=== PATIENT | male | born 1965 | race Caucasian/White ===

== ENCOUNTER 2017-08-15 07:30 | Emergency (ER) | payer MEDICARE ==
[2017-08-15] MEDS: OXYCODONE/ACETAMINOPHEN (5/325) TAB PO (09:26)
[2017-08-15] MEDS: LORAZEPAM 2 MG INJ IM (09:26)
[2017-08-15] MEDS: KETOROLAC 30 MG INJ IM (09:26)
== END 2017-08-15 13:35 | disposition home or self-care (01) ==
LOC: E/R 07:30
DX: I82.511 Chronic embolism and thrombosis of right femoral vein (principal); L97.529 Non-pressure chronic ulcer of other part of left foot with unspecified severity; I87.2 Venous insufficiency (chronic) (peripheral); G89.4 Chronic pain syndrome; I10 Essential (primary) hypertension; Z79.84 Long term (current) use of oral hypoglycemic drugs
CPT/HCPCS: 96372; 99284-25

== ENCOUNTER 2018-02-08 11:38 | Emergency (ER) | payer MEDICARE, OTHER | END 2018-02-08 14:10 | disposition home or self-care (01) | LOC: E/R 11:38 | DX: F10.10 Alcohol abuse, uncomplicated (principal); I10 Essential (primary) hypertension; Z72.89 Other problems related to lifestyle | CPT/HCPCS: 99282 ==

== ENCOUNTER 2018-02-16 02:48 | Emergency (ER) | payer MEDICARE, OTHER | END 2018-02-16 08:15 | disposition home or self-care (01) | LOC: E/R 02:48 | DX: M25.511 Pain in right shoulder (principal); I10 Essential (primary) hypertension; E11.9 Type 2 diabetes mellitus without complications; F17.210 Nicotine dependence, cigarettes, uncomplicated; Z79.84 Long term (current) use of oral hypoglycemic drugs; Z79.82 Long term (current) use of aspirin | CPT/HCPCS: 73030; 73030-RT; 99283-25 ==

== ENCOUNTER 2018-06-02 07:56 | Emergency (ER) | payer MEDICARE, OTHER ==
[2018-06-02 08:46] LABS: ADD MAN DIFF? NO
[2018-06-02 08:50] LABS: BASOPHIL # 0.1 10^3/ul (0.0-0.1); BASOPHILS % 0.8 % (0.0-2.0); EOSINOPHILS % 0.2 % (0.0-7.0); HEMATOCRIT 43.4 % (42.0-52.0); HEMOGLOBIN 14.8 g/dl (14.0-18.0); LYMPHOCYTES # 1.9 10^3/ul (0.8-2.9); LYMPHOCYTES % 18.4 % (15.0-51.0); MEAN CORPUSCULAR HEMOGLOBIN 28.7 pg (29.0-33.0); MEAN CORPUSCULAR HGB CONC 34.1 g/dl (32.0-37.0); MEAN CORPUSCULAR VOLUME 84.1 fl (82.0-101.0); MEAN PLATELET VOLUME 9.9 fl (7.4-10.4); MONOCYTE # 0.7 10^3/ul (0.3-0.9); MONOCYTES % 6.9 % (0.0-11.0); NEUTROPHIL # 7.6 10^3/ul (1.6-7.5); PLATELET COUNT 276 10^3/UL (140-415); RED BLOOD COUNT 5.16 10^6/ul (4.70-6.10); RED CELL DISTRIBUTION WIDTH 13.2 % (11.5-14.5)
[2018-06-02 08:50] LABS: WHITE BLOOD COUNT 10.4 10^3/ul (4.8-10.8)
[2018-06-02 09:11] LABS: ALANINE AMINOTRANSFERASE 53 IU/L (13-69); ALBUMIN 4.7 g/dl (3.3-4.9); ALKALINE PHOSPHATASE 193 IU/L (42-121); ANION GAP 15 (5-13); ASPARTATE AMINO TRANSFERASE 43 IU/L (15-46); BLOOD UREA NITROGEN 12 mg/dl (7-20); CALCIUM 10.1 mg/dl (8.4-10.2); CARBON DIOXIDE 28 mmol/L (21-31); CHLORIDE 101 mmol/L (97-110); CREATININE 0.56 mg/dl (0.61-1.24); Estimated GFR > 60 mL/min (>60); GLUCOSE 355 mg/dl (70-220); LIPASE 78 U/L (23-300); POTASSIUM 3.8 mmol/L (3.5-5.1); SODIUM 144 mmol/L (135-144); TOTAL PROTEIN 8.3 g/dl (6.1-8.1)
== END 2018-06-02 09:40 | disposition home or self-care (01) ==
LOC: E/R 07:56
DX: F10.10 Alcohol abuse, uncomplicated (principal); E11.9 Type 2 diabetes mellitus without complications; Z79.82 Long term (current) use of aspirin; Z79.84 Long term (current) use of oral hypoglycemic drugs; Z87.891 Personal history of nicotine dependence; Z89.611 Acquired absence of right leg above knee
CPT/HCPCS: 36415; 80053; 80307; 83690; 85025; 99283

== ENCOUNTER 2018-06-17 15:29 | Inpatient (IN) | payer MEDICARE, OTHER ==
[2018-06-17 17:31] LABS: ADD MAN DIFF? NO
[2018-06-17 17:35] LABS: BASOPHIL # 0.1 10^3/ul (0.0-0.1); EOSINOPHILS % 0.4 % (0.0-7.0); HEMATOCRIT 44.6 % (42.0-52.0); HEMOGLOBIN 15.2 g/dl (14.0-18.0); LYMPHOCYTES # 1.8 10^3/ul (0.8-2.9); LYMPHOCYTES % 25.6 % (15.0-51.0); MEAN CORPUSCULAR HEMOGLOBIN 28.8 pg (29.0-33.0); MEAN CORPUSCULAR HGB CONC 34.1 g/dl (32.0-37.0); MEAN CORPUSCULAR VOLUME 84.5 fl (82.0-101.0); MEAN PLATELET VOLUME 9.4 fl (7.4-10.4); MONOCYTE # 0.6 10^3/ul (0.3-0.9); MONOCYTES % 8.1 % (0.0-11.0); NEUTROPHIL # 4.5 10^3/ul (1.6-7.5); NEUTROPHILS % 64.3 % (39.0-77.0); PLATELET COUNT 297 10^3/UL (140-415); RED BLOOD COUNT 5.28 10^6/ul (4.70-6.10); RED CELL DISTRIBUTION WIDTH 13.4 % (11.5-14.5)
[2018-06-17 17:53] LABS: ANION GAP 14 (5-13); BLOOD UREA NITROGEN 8 mg/dl (7-20); CALCIUM 9.3 mg/dl (8.4-10.2); CARBON DIOXIDE 26 mmol/L (21-31); CHLORIDE 103 mmol/L (97-110); CREATININE 0.72 mg/dl (0.61-1.24); Estimated GFR > 60 mL/min (>60); GLUCOSE 122 mg/dl (70-220); POTASSIUM 3.7 mmol/L (3.5-5.1); SODIUM 143 mmol/L (135-144)
[2018-06-17] MEDS: SOD CHLORIDE 0.9% 2,000 ML IV (18:10)
[2018-06-17 18:51] LABS: ADD UMIC NO; UR ASCORBIC ACID NEGATIVE (NEGATIVE); UR BILIRUBIN (Dip) NEGATIVE (NEGATIVE); UR BLOOD (Dip) NEGATIVE (NEGATIVE); UR CLARITY CLEAR (CLEAR); UR COLOR STRAW (YELLOW); UR GLUCOSE (Dip) NEGATIVE (NEGATIVE); UR KETONES (Dip) NEGATIVE (NEGATIVE); UR LEUKOCYTE ESTERASE (Dip) NEGATIVE Leu/ul (NEGATIVE); UR NITRITE (Dip) NEGATIVE (NEGATIVE); UR SPECIFIC GRAVITY (Dip) 1.009 (1.003-1.030); UR TOTAL PROTEIN (Dip) NEGATIVE (NEGATIVE); UR UROBILINOGEN (Dip) NEGATIVE (NEGATIVE)
[2018-06-17] MEDS: OXYCODONE/ACETAMINOPHEN (5/325) TAB PO (19:56)
[2018-06-17] MEDS ORDERED: LORAZEPAM 1 MG TAB PO (20:51)
[2018-06-17] MEDS: LORAZEPAM 2 MG INJ IM (21:01)
[2018-06-17] MEDS: LORAZEPAM 2 MG INJ IV (23:50)
[2018-06-18] MEDS ORDERED: DOCUSATE SODIUM 100 MG CAP PO (02:00)
[2018-06-18] MEDS ORDERED: ACETAMINOPHEN 650MG/20.3ML CUP PO (02:00)
[2018-06-18] MEDS: LORAZEPAM 2 MG INJ IV ×3 (02:53→20:13)
[2018-06-18] MEDS ORDERED: GLUCOSE GEL 15 GRAM TUBE BUCCAL (04:30)
[2018-06-18] MEDS ORDERED: GLUCOSE GEL 15 GRAM TUBE PO ×2 (04:30)
[2018-06-18] MEDS ORDERED: GLUCAGON 1 MG INJ IM (04:30)
[2018-06-18] MEDS ORDERED: DEXTROSE 50% 50 ML SYRINGE IV ×2 (04:30)
[2018-06-18] MEDS: MULTIVITAMINS 10 ML, FOLIC ACID 1 MG in SOD CHLORIDE 0.9% 1,000 ML IVPB ×2 (04:37→09:00)
[2018-06-18 04:42] LABS: ADD MAN DIFF? NO
[2018-06-18 04:44] LABS: BASOPHIL # 0.1 10^3/ul (0.0-0.1); EOSINOPHILS # 0.1 10^3/ul (0.0-0.5); HEMOGLOBIN 14.2 g/dl (14.0-18.0); MEAN CORPUSCULAR HEMOGLOBIN 28.8 pg (29.0-33.0); MEAN CORPUSCULAR HGB CONC 33.8 g/dl (32.0-37.0); MEAN CORPUSCULAR VOLUME 85.2 fl (82.0-101.0); MEAN PLATELET VOLUME 9.6 fl (7.4-10.4); MONOCYTE # 0.7 10^3/ul (0.3-0.9); MONOCYTES % 8.9 % (0.0-11.0); NEUTROPHIL # 5.1 10^3/ul (1.6-7.5); NEUTROPHILS % 63.7 % (39.0-77.0); PLATELET COUNT 312 10^3/UL (140-415); RED BLOOD COUNT 4.93 10^6/ul (4.70-6.10); RED CELL DISTRIBUTION WIDTH 13.7 % (11.5-14.5)
[2018-06-18 04:58] LABS: HEMOGLOBIN A1C 7.1 % (0-5.9)
[2018-06-18] MEDS: INSULIN ASPART [NOVOLOG] 3 ML PEN SC ×5 (05:00→20:19)
[2018-06-18 05:02] LABS: ANION GAP 10 (5-13); BLOOD UREA NITROGEN 11 mg/dl (7-20); CALCIUM 8.7 mg/dl (8.4-10.2); CARBON DIOXIDE 28 mmol/L (21-31); CHLORIDE 101 mmol/L (97-110); CHOLESTEROL 201 mg/dl (100-200); CREATININE 0.78 mg/dl (0.61-1.24); Estimated GFR > 60 mL/min (>60); GLUCOSE 128 mg/dl (70-220); HDL CHOLESTEROL 33 mg/dl (28-71); POTASSIUM 3.6 mmol/L (3.5-5.1); SODIUM 139 mmol/L (135-144)
[2018-06-18 05:03] LABS: PROTIME 13.3 Sec (11.9-14.9)
[2018-06-18 05:04] LABS: PARTIAL THROMBOPLASTIN TIME 28.2 Sec (23.0-35.0)
[2018-06-18 05:12] LABS: ETHANOL < 10.0 mg/dl (0-0)
[2018-06-18 05:13] LABS: LDL CHOLESTEROL,CALCULATED 15 mg/dl; TRIGLYCERIDES 765 mg/dl (0-149)
[2018-06-18 06:41] LABS: AMPHETAMINE/METHAMPHETAMINE NEGATIVE (NEGATIVE); BARBITURATES NEGATIVE (NEGATIVE); BENZODIAZEPINES NEGATIVE (NEGATIVE); CANNABINOIDS POSITIVE (NEGATIVE); COCAINE NEGATIVE (NEGATIVE); OPIATES NEGATIVE (NEGATIVE)
[2018-06-18] MEDS: LABETALOL HCL 20MG INJ IV ×2 (07:16→12:13)
[2018-06-18] MEDS: PANTOPRAZOLE 40 MG INJ IV (07:17)
[2018-06-18] MEDS: SOD CHLORIDE 0.9% 1,000 ML IV ×2 (07:18→17:02)
[2018-06-18] MEDS ORDERED: THIAMINE 200 MG INJ IM (09:00)
[2018-06-18] MEDS: CHLORDIAZEPOXIDE 25 MG CAP PO ×3 (09:18→20:12)
[2018-06-18] MEDS: LOSARTAN 50 MG TAB PO ×2 (09:18→20:12)
[2018-06-18] MEDS: FOLIC ACID 1 MG TAB PO (09:19)
[2018-06-18] MEDS: MULTIVITAMINS THERAPEUTIC TAB PO (09:19)
[2018-06-18] MEDS: METOPROLOL (XL) 50 MG TAB PO (09:19)
[2018-06-18] MEDS: AMLODIPINE 10 MG TAB PO (09:19)
[2018-06-18] MEDS: FENOFIBRATE 145 MG TAB PO (10:48)
[2018-06-18] MEDS: TRIMETHOPRIM/SULFAMETHOX (DS) TAB PO (10:48)
[2018-06-18] MEDS: POTASSIUM CHLORIDE (SR) 20 MEQ TAB PO (10:49)
[2018-06-18 11:27] LABS: MAGNESIUM 1.5 mg/dl (1.7-2.5)
[2018-06-18] MEDS ORDERED: PENDING SANTYL ORDER FOR WOUND CARE XX (11:30)
[2018-06-18] MEDS: MAGNESIUM OXIDE 400 MG TAB PO (14:22)
[2018-06-18] MEDS: ONDANSETRON 4 MG INJ IV (15:47)
[2018-06-18 17:41] LABS: T4 (THYROXINE) 7.9 ug/dl (5.5-11.0)
[2018-06-18 17:55] LABS: TRIIODOTHYRONINE 1.56 ng/ml (0.97-1.69)
[2018-06-18] MEDS: COLLAGENASE 5 GM (UD JAR) TOP (18:06)
[2018-06-18] MEDS: HYDROmorphONE 0.5 MG/0.5 ML SYG IV ×2 (18:21→23:03)
[2018-06-18] MEDS: ATORVASTATIN 40 MG TAB PO (20:12)
[2018-06-18] MEDS: ZOLPIDEM 5 MG TAB PO (23:03)
[2018-06-19] MEDS: SOD CHLORIDE 0.9% 1,000 ML IV (01:07)
[2018-06-19] MEDS: INSULIN ASPART [NOVOLOG] 3 ML PEN SC ×6 (01:17→21:00)
[2018-06-19] MEDS: ACCU-CHEK XX (01:17)
[2018-06-19] MEDS: HYDROmorphONE 0.5 MG/0.5 ML SYG IV ×4 (04:03→20:03)
[2018-06-19] MEDS: PANTOPRAZOLE 40 MG INJ IV (05:18)
[2018-06-19 05:20] LABS: ALBUMIN 3.5 g/dl (3.3-4.9); ANION GAP 13 (5-13); BLOOD UREA NITROGEN 12 mg/dl (7-20); CALCIUM 8.5 mg/dl (8.4-10.2); CARBON DIOXIDE 25 mmol/L (21-31); CHLORIDE 103 mmol/L (97-110); CREATININE 0.82 mg/dl (0.61-1.24); GLUCOSE 122 mg/dl (70-220); MAGNESIUM 1.8 mg/dl (1.7-2.5); PHOSPHORUS 4.5 mg/dl (2.5-4.9); POTASSIUM 3.8 mmol/L (3.5-5.1); SODIUM 141 mmol/L (135-144)
[2018-06-19] MEDS: LORAZEPAM 2 MG INJ IV ×3 (05:23→21:07)
[2018-06-19] MEDS: THIAMINE 100 MG TAB PO (08:32)
[2018-06-19] MEDS: LOSARTAN 50 MG TAB PO ×2 (08:32→21:07)
[2018-06-19] MEDS: FOLIC ACID 1 MG TAB PO (08:32)
[2018-06-19] MEDS: CHLORDIAZEPOXIDE 25 MG CAP PO ×4 (08:32→21:06)
[2018-06-19] MEDS: AMLODIPINE 10 MG TAB PO (08:32)
[2018-06-19] MEDS: FENOFIBRATE 145 MG TAB PO (08:32)
[2018-06-19] MEDS: COLLAGENASE 5 GM (UD JAR) TOP (08:33)
[2018-06-19] MEDS: METOPROLOL (XL) 50 MG TAB PO (08:33)
[2018-06-19] MEDS: MULTIVITAMINS THERAPEUTIC TAB PO (08:33)
[2018-06-19] MEDS: TRIMETHOPRIM/SULFAMETHOX (DS) TAB PO ×2 (08:33→20:57)
[2018-06-19] MEDS: ATORVASTATIN 40 MG TAB PO (21:10)
[2018-06-19] MEDS: ZOLPIDEM 5 MG TAB PO ×2 (22:19→23:07)
[2018-06-20] MEDS: HYDROmorphONE 0.5 MG/0.5 ML SYG IV ×7 (00:24→23:56)
[2018-06-20] MEDS: traZODone 50 MG TAB PO (00:44)
[2018-06-20] MEDS ORDERED: DIPHENHYDRAMINE 50 MG CAP (02:33)
[2018-06-20] MEDS: DIPHENHYDRAMINE 50 MG CAP PO (02:35)
[2018-06-20] MEDS: PANTOPRAZOLE 40 MG INJ IV (05:43)
[2018-06-20] MEDS: INSULIN ASPART [NOVOLOG] 3 ML PEN SC ×4 (07:49→20:06)
[2018-06-20] MEDS: MULTIVITAMINS THERAPEUTIC TAB PO (08:23)
[2018-06-20] MEDS: COLLAGENASE 5 GM (UD JAR) TOP (08:23)
[2018-06-20] MEDS: THIAMINE 100 MG TAB PO (08:23)
[2018-06-20] MEDS: CHLORDIAZEPOXIDE 25 MG CAP PO ×3 (08:23→20:06)
[2018-06-20] MEDS: TRIMETHOPRIM/SULFAMETHOX (DS) TAB PO ×2 (08:23→20:06)
[2018-06-20] MEDS: FOLIC ACID 1 MG TAB PO (08:23)
[2018-06-20] MEDS: METOPROLOL (XL) 50 MG TAB PO (08:24)
[2018-06-20] MEDS: LOSARTAN 50 MG TAB PO ×2 (08:25→20:08)
[2018-06-20] MEDS: LORAZEPAM 2 MG INJ IV ×4 (08:25→22:33)
[2018-06-20] MEDS: AMLODIPINE 10 MG TAB PO (08:25)
[2018-06-20] MEDS: FENOFIBRATE 145 MG TAB PO (10:47)
[2018-06-20] MEDS: ATORVASTATIN 40 MG TAB PO (20:06)
[2018-06-20] MEDS: BISACODYL (EC) 5 MG TAB PO (23:55)
[2018-06-21] MEDS: LORAZEPAM 2 MG INJ IV ×3 (03:27→20:20)
[2018-06-21] MEDS: PANTOPRAZOLE (EC) 40 MG TAB PO (05:21)
[2018-06-21] MEDS: HYDROmorphONE 0.5 MG/0.5 ML SYG IV ×5 (05:21→23:20)
[2018-06-21] MEDS: INSULIN ASPART [NOVOLOG] 3 ML PEN SC ×4 (08:00→20:30)
[2018-06-21] MEDS: METOPROLOL (XL) 50 MG TAB PO (08:57)
[2018-06-21] MEDS: COLLAGENASE 5 GM (UD JAR) TOP (08:57)
[2018-06-21] MEDS: MULTIVITAMINS THERAPEUTIC TAB PO (08:57)
[2018-06-21] MEDS: TRIMETHOPRIM/SULFAMETHOX (DS) TAB PO ×2 (08:57→20:22)
[2018-06-21] MEDS: THIAMINE 100 MG TAB PO (08:57)
[2018-06-21] MEDS: FOLIC ACID 1 MG TAB PO (08:57)
[2018-06-21] MEDS: AMLODIPINE 10 MG TAB PO (08:58)
[2018-06-21] MEDS: LOSARTAN 50 MG TAB PO ×2 (08:58→20:23)
[2018-06-21] MEDS: FENOFIBRATE 145 MG TAB PO (11:54)
[2018-06-21] MEDS: ATORVASTATIN 40 MG TAB PO (20:21)
[2018-06-21] MEDS: ZOLPIDEM 5 MG TAB PO (22:18)
[2018-06-22] MEDS: LORAZEPAM 2 MG INJ IV ×5 (00:19→22:41)
[2018-06-22] MEDS: HYDROmorphONE 0.5 MG/0.5 ML SYG IV ×4 (05:52→20:32)
[2018-06-22] MEDS: PANTOPRAZOLE (EC) 40 MG TAB PO (05:52)
[2018-06-22] MEDS: INSULIN ASPART [NOVOLOG] 3 ML PEN SC ×4 (08:15→20:31)
[2018-06-22] MEDS: FENOFIBRATE 145 MG TAB PO (08:16)
[2018-06-22] MEDS: FOLIC ACID 1 MG TAB PO (08:17)
[2018-06-22] MEDS: COLLAGENASE 5 GM (UD JAR) TOP ×2 (08:18→22:36)
[2018-06-22] MEDS: THIAMINE 100 MG TAB PO (08:24)
[2018-06-22] MEDS: TRIMETHOPRIM/SULFAMETHOX (DS) TAB PO ×2 (08:25→20:07)
[2018-06-22] MEDS: LOSARTAN 50 MG TAB PO ×2 (08:25→20:07)
[2018-06-22] MEDS: MULTIVITAMINS THERAPEUTIC TAB PO (08:25)
[2018-06-22] MEDS: AMLODIPINE 10 MG TAB PO (08:26)
[2018-06-22] MEDS: METOPROLOL (XL) 50 MG TAB PO (08:26)
[2018-06-22] MEDS: ATORVASTATIN 40 MG TAB PO (20:07)
[2018-06-22] MEDS: ZOLPIDEM 5 MG TAB PO (23:35)
[2018-06-23] MEDS: ZOLPIDEM 5 MG TAB PO ×2 (00:08→22:36)
[2018-06-23] MEDS: HYDROmorphONE 0.5 MG/0.5 ML SYG IV ×5 (02:41→21:38)
[2018-06-23] MEDS: PANTOPRAZOLE (EC) 40 MG TAB PO (06:01)
[2018-06-23] MEDS: LORAZEPAM 2 MG INJ IV ×4 (06:01→19:34)
[2018-06-23 06:43] LABS: ALBUMIN 4.7 g/dl (3.3-4.9); ANION GAP 18 (5-13); BLOOD UREA NITROGEN 17 mg/dl (7-20); CALCIUM 10.2 mg/dl (8.4-10.2); CARBON DIOXIDE 24 mmol/L (21-31); CHLORIDE 100 mmol/L (97-110); CREATININE 1.16 mg/dl (0.61-1.24); GLUCOSE 159 mg/dl (70-220); PHOSPHORUS 4.5 mg/dl (2.5-4.9); POTASSIUM 5.1 mmol/L (3.5-5.1); SODIUM 142 mmol/L (135-144)
[2018-06-23] MEDS: INSULIN ASPART [NOVOLOG] 3 ML PEN SC ×4 (07:52→21:39)
[2018-06-23] MEDS: COLLAGENASE 5 GM (UD JAR) TOP (08:28)
[2018-06-23] MEDS: FOLIC ACID 1 MG TAB PO (08:28)
[2018-06-23] MEDS: TRIMETHOPRIM/SULFAMETHOX (DS) TAB PO ×2 (08:28→21:39)
[2018-06-23] MEDS: FENOFIBRATE 145 MG TAB PO (08:28)
[2018-06-23] MEDS: MULTIVITAMINS THERAPEUTIC TAB PO (08:29)
[2018-06-23] MEDS: AMLODIPINE 10 MG TAB PO (08:30)
[2018-06-23] MEDS: THIAMINE 100 MG TAB PO (08:30)
[2018-06-23] MEDS: METOPROLOL (XL) 50 MG TAB PO (08:31)
[2018-06-23] MEDS: LOSARTAN 50 MG TAB PO ×2 (08:31→21:40)
[2018-06-23] MEDS: ATORVASTATIN 40 MG TAB PO (21:39)
[2018-06-24] MEDS: LORAZEPAM 2 MG INJ IV ×3 (00:12→20:26)
[2018-06-24] MEDS: HYDROmorphONE 0.5 MG/0.5 ML SYG IV ×2 (02:43→06:43)
[2018-06-24 05:49] LABS: ADD MAN DIFF? NO
[2018-06-24 05:52] LABS: WHITE BLOOD COUNT 6.3 10^3/ul (4.8-10.8)
[2018-06-24 05:52] LABS: BASOPHIL # 0.1 10^3/ul (0.0-0.1); BASOPHILS % 1.1 % (0.0-2.0); EOSINOPHILS # 0.2 10^3/ul (0.0-0.5); EOSINOPHILS % 2.7 % (0.0-7.0); HEMATOCRIT 40.5 % (42.0-52.0); HEMOGLOBIN 13.4 g/dl (14.0-18.0); LYMPHOCYTES # 1.9 10^3/ul (0.8-2.9); LYMPHOCYTES % 30.3 % (15.0-51.0); MEAN CORPUSCULAR HEMOGLOBIN 29.4 pg (29.0-33.0); MEAN CORPUSCULAR HGB CONC 33.1 g/dl (32.0-37.0); MEAN CORPUSCULAR VOLUME 88.8 fl (82.0-101.0); MEAN PLATELET VOLUME 10.5 fl (7.4-10.4); MONOCYTE # 0.6 10^3/ul (0.3-0.9); NEUTROPHIL # 3.4 10^3/ul (1.6-7.5); NEUTROPHILS % 54.5 % (39.0-77.0); PLATELET COUNT 236 10^3/UL (140-415); RED BLOOD COUNT 4.56 10^6/ul (4.70-6.10); RED CELL DISTRIBUTION WIDTH 14.2 % (11.5-14.5)
[2018-06-24 06:24] LABS: ALBUMIN 4.2 g/dl (3.3-4.9); ANION GAP 12 (5-13); BLOOD UREA NITROGEN 19 mg/dl (7-20); CALCIUM 9.9 mg/dl (8.4-10.2); CARBON DIOXIDE 26 mmol/L (21-31); CHLORIDE 102 mmol/L (97-110); CREATININE 1.28 mg/dl (0.61-1.24); GLUCOSE 128 mg/dl (70-220); MAGNESIUM 2.1 mg/dl (1.7-2.5); POTASSIUM 4.9 mmol/L (3.5-5.1); SODIUM 140 mmol/L (135-144)
[2018-06-24] MEDS: PANTOPRAZOLE (EC) 40 MG TAB PO (06:42)
[2018-06-24] MEDS: INSULIN ASPART [NOVOLOG] 3 ML PEN SC ×4 (07:55→20:28)
[2018-06-24] MEDS: THIAMINE 100 MG TAB PO (08:08)
[2018-06-24] MEDS: TRIMETHOPRIM/SULFAMETHOX (DS) TAB PO ×2 (08:08→20:28)
[2018-06-24] MEDS: COLLAGENASE 5 GM (UD JAR) TOP (08:08)
[2018-06-24] MEDS: AMLODIPINE 10 MG TAB PO (08:09)
[2018-06-24] MEDS: FOLIC ACID 1 MG TAB PO (08:09)
[2018-06-24] MEDS: FENOFIBRATE 145 MG TAB PO (08:09)
[2018-06-24] MEDS: MULTIVITAMINS THERAPEUTIC TAB PO (08:09)
[2018-06-24] MEDS: METOPROLOL (XL) 50 MG TAB PO (08:10)
[2018-06-24] MEDS: LOSARTAN 50 MG TAB PO (08:10)
[2018-06-24] MEDS: SOD CHLORIDE 0.9% 1,000 ML IV (11:48)
[2018-06-24] MEDS: OXYCODONE/ACETAMINOPHEN (10/325) TAB PO ×3 (11:48→22:06)
[2018-06-24] MEDS: ATORVASTATIN 40 MG TAB PO (20:28)
[2018-06-24] MEDS: ZOLPIDEM 5 MG TAB PO (22:57)
[2018-06-25] MEDS: OXYCODONE/ACETAMINOPHEN (10/325) TAB PO ×3 (04:04→12:57)
[2018-06-25] MEDS: COLLAGENASE 5 GM (UD JAR) TOP ×2 (04:07→08:43)
[2018-06-25] MEDS: PANTOPRAZOLE (EC) 40 MG TAB PO (05:13)
[2018-06-25 06:34] LABS: ADD MAN DIFF? NO
[2018-06-25 06:36] LABS: BASOPHIL # 0.1 10^3/ul (0.0-0.1); BASOPHILS % 1.4 % (0.0-2.0); EOSINOPHILS # 0.1 10^3/ul (0.0-0.5); EOSINOPHILS % 2.2 % (0.0-7.0); HEMOGLOBIN 12.7 g/dl (14.0-18.0); LYMPHOCYTES # 1.8 10^3/ul (0.8-2.9); LYMPHOCYTES % 35.5 % (15.0-51.0); MEAN CORPUSCULAR HEMOGLOBIN 28.9 pg (29.0-33.0); MEAN CORPUSCULAR HGB CONC 32.6 g/dl (32.0-37.0); MEAN CORPUSCULAR VOLUME 88.6 fl (82.0-101.0); MEAN PLATELET VOLUME 10.7 fl (7.4-10.4); MONOCYTE # 0.5 10^3/ul (0.3-0.9); MONOCYTES % 9.2 % (0.0-11.0); NEUTROPHIL # 2.5 10^3/ul (1.6-7.5); NEUTROPHILS % 50.3 % (39.0-77.0); PLATELET COUNT 227 10^3/UL (140-415); RED CELL DISTRIBUTION WIDTH 14.1 % (11.5-14.5)
[2018-06-25 07:04] LABS: ANION GAP 14 (5-13); BLOOD UREA NITROGEN 19 mg/dl (7-20); CALCIUM 9.4 mg/dl (8.4-10.2); CARBON DIOXIDE 26 mmol/L (21-31); CHLORIDE 101 mmol/L (97-110); CREATININE 1.08 mg/dl (0.61-1.24); Estimated GFR > 60 mL/min (>60); GLUCOSE 147 mg/dl (70-220); POTASSIUM 4.5 mmol/L (3.5-5.1); SODIUM 141 mmol/L (135-144)
[2018-06-25] MEDS: INSULIN ASPART [NOVOLOG] 3 ML PEN SC ×2 (08:36→12:56)
[2018-06-25] MEDS: FENOFIBRATE 145 MG TAB PO (08:38)
[2018-06-25] MEDS: FOLIC ACID 1 MG TAB PO (08:38)
[2018-06-25] MEDS: MULTIVITAMINS THERAPEUTIC TAB PO (08:39)
[2018-06-25] MEDS: TRIMETHOPRIM/SULFAMETHOX (DS) TAB PO (08:39)
[2018-06-25] MEDS: THIAMINE 100 MG TAB PO (08:39)
[2018-06-25] MEDS: AMLODIPINE 10 MG TAB PO (08:41)
[2018-06-25] MEDS: METOPROLOL (XL) 50 MG TAB PO (08:42)
[2018-06-26] MEDS ORDERED: AMLODIPINE 5 MG TAB PO (09:00)
== END 2018-06-25 15:20 | disposition home health service (06) | DRG 86 ==
LOC: PP2 06-19 19:02 → ICU 06-18 01:54 → E/R 15:29
DX: S06.5X0A Traumatic subdural hemorrhage without loss of consciousness, initial encounter (principal); L03.116 Cellulitis of left lower limb; N17.9 Acute kidney failure, unspecified; F10.129 Alcohol abuse with intoxication, unspecified; Y90.0 Blood alcohol level of less than 20 mg/100 ml; I10 Essential (primary) hypertension; G89.29 Other chronic pain; Z89.511 Acquired absence of right leg below knee; E78.5 Hyperlipidemia, unspecified; V00.811A Fall from moving wheelchair (powered), initial encounter
CPT/HCPCS: 36415; 70450; 70553; 73590; 80048; 80061; 80069; 80307; 81003; 82962; 83036; 83735; 84100; 84436; 84443; 84480; 84481; 85025; 85610; 85730; 87081; 93005; 96372; 96374; 97116; 97162; 97165; 97167; 97530; 99285-25